=== PATIENT | female | born 1995 | race Asian ===

== ENCOUNTER 2024-09-15 05:41 | Emergency (ER) | payer OTHER, SELFPAY ==
[2024-09-15 05:46] VITALS: BP 123/80
[2024-09-15 06:24] VITALS: BMI 30.7
[2024-09-15 07:07] LABS: COVID-19 Antigen Negative (Negative)
--- NOTE | 2024-09-15 07:17 | ED.GENMED ---
History of Present Illness
General
Chief Complaint: Cold/Flu/URI Symptoms
Source: patient and family (Father)
Exam Limitations: none
Time Seen by Provider: 09/15/24 06:30
Nursing documentation reviewed up to this point in time: agreed with
History of Present Illness
History of Present Illness:
29-year-old female presents emergency room due to congestion, cough, body aches. She is having difficulty breathing and cannot sleep. She tried taking a little bit of irina last night but it did not help.
Past History
Past History
ED Past Medical History: None
ED Past Surgical History: None
Social History
Tobacco: Non-smoker
Alcohol: Occasional
Drug: None
Review of Systems
Review of Systems
Allergies reviewed?: Yes
All Other Systems: Not applicable
Constitutional: Reports fever
EENT: Reports runny nose
Respiratory: Reports cough and trouble breathing
Cardiac: Reports no symptoms
ABD/GI: Reports no symptoms
: Reports no symptoms
Musculoskeletal: Reports muscle pain
Skin: Reports no symptoms
Neurological: Reports no symptoms
Endocrine: Reports no symptoms
Hematologic/Lymphatic: Reports no symptoms
Psychiatric: Reports no symptoms
Phy Exam
Physical Exam
Physical Exam:
Physical Exam
General: Mild respiratory distress, temperature 100.6
Neck: supple. no meningeal signs. normal posterior pharynx
Heart: s1/s2 tachycardia, no murmur. equal radial
pulses.
HEENT: Pupils equal round reactive to light, EOMI
Lungs: Mild respiratory distress. wheezing and decreased breath sounds bilaterally
Abdomen: normal bowel sounds. not tender. no CVAT
Neuro: alert and oriented. no focal neurological deficits cranial nerves II through XII intact
Skin: no rash
Psychiatric: well kept. interactive and cooperative
Extremities: no edema. no calf tenderness. negative homans. good distal pulses
Sepsis
Sepsis Screening
Sepsis Assessment: Sepsis Ruled Out
Sepsis Screen
Sepsis Screen: Sepsis Ruled Out
Date: 09/15/24
Time: 10:44
Course
Orders/Labs/Results
Orders:
Orders
09/15/24 05:49
Chest [CR Chest - 2 Views ] Urgent
Comment:
Reason For Exam: SOB
09/15/24 05:52
Rapid Strep Group A Urgent
ABIMAEL Source: Throat/Pharynx
Specimen Description:
Date Specimen was Collected: 09/15/24
Time Specimen was Collected: 05:49
09/15/24 06:38
COVID-19 Antigen Urgent
Source: Nasal Swab
Influenza A+B Rapid Molecular Urgent
ABIMAEL Source: Nasal Swab
Specimen Description:
09/15/24 07:09
Ipratropium/Albuterol Sulfate [Duoneb] 3 ml INH R NOW STA
09/15/24 07:15
Prednisone [Deltasone] 50 mg PO NOW STA
09/15/24 07:18
Acetaminophen [Tylenol] 650 mg PO NOW STA
09/15/24 07:54
Ipratropium/Albuterol Sulfate [Duoneb] 3 ml INH R NOW STA
Vital Signs
Initial and Last Documented VS:
Initial Vital Signs
Temp Pulse Resp BP Pulse Ox
100.6 F H 106 24 123/80 91
09/15/24 05:46 09/15/24 05:46 09/15/24 05:46 09/15/24 05:46 09/15/24 05:46
Last Documented Vital Signs
Temp Pulse Resp BP Pulse Ox
100.6 F H 106 24 89/67 95
09/15/24 05:46 09/15/24 05:46 09/15/24 05:46 09/15/24 10:00 09/15/24 10:00
MDM/Problems Addressed
Differential Diagnosis Includes:
Pneumonia, CHF, pneumothorax
MDM/Problems Addressed:
29-year-old female with bronchitis. CXR no infiltrates. Improved after duonebs, prednisone. Stable for dc.
*Radiology
Radiology exam reviewed: preliminary read by ED provider (cxr nad)
*Pulse Oximetry
Patient hypoxic: no
*Critical Care Note
Total Time (30-74mins, 75-104mins- exclusive of procedures): Not Applicable
Data Reviewed
Further Testing Considered But Not Given:
labs, ct chest not indicated
ED Attending Note
-
Portions of this chart may have been created with voice recognition software.� Occasional wrong word or��sound alike� substitutions may have occurred due to the inherent limitations of voice recognition software.
Discharge Plan
Departure
Patient Disposition: Home (Routine Discharge)
Date of Disposition: 09/15/24
Time of Disposition: 10:09
Patient with high blood pressure during this ER visit?: Yes
Discharge Problem:
Acute bronchitis
Instructions: Acute Bronchitis, Adult (DC)
Prescriptions:
New
albuterol sulfate 90 mcg/actuation aerosol powdr breath activated
2 inh inhalation Q4H PRN (Reason: shortness of breath) Qty: 1 0RF
prednisone 50 mg tablet
50 mg PO DAILY Qty: 5 0RF
No Action
methylprednisolone [Medrol (Miguel)] 4 MG tablets,dose pack
4 tab PO . DIRECT Qty: 1 0RF
hydroxyzine HCl 10 MG tablet
10 mg PO TID PRN (Reason: Itching) Qty: 15 0RF
meloxicam 7.5 MG tablet
7.5 mg PO BID Qty: 14 0RF
albuterol sulfate 90 mcg/actuation aerosol powdr breath activated
2 inh inhalation Q6H PRN (Reason: shortness of breath or wheezing) Qty: 1 0RF
(DME) [employer] [place] Enhancer Spacer
See Rx Instructions .Route Qty: 1 0RF
Rx Instructions:
As directed
Referrals:
Claudette Driscoll MD [Family Provider] - Call in 1-3 days for appt
Interventions
Interventions:
*Risk Screen - Suicide Last Done: 09/15/24 06:24
*General Assessment Last Done: 09/15/24 06:24
*Neglect/Abuse Screening Last Done: 09/15/24 06:24
ED- Fall Risk Assessment Last Done: 09/15/24 08:42
*ED COVID-19 Vaccine History Last Done: 09/15/24 06:24
*Nursing Disposition Last Done: 09/15/24 10:27
ED- Cardiac Assessment Last Done: 09/15/24 06:24
ED- Pulmonary Assessment Last Done: 09/15/24 06:24
Discharge Date and Time
Print Language: GREEK
[2024-09-15] MEDS: TYLENOL 650 MG PO (07:29)
[2024-09-15] MEDS: DELTASONE 50 MG PO (07:29)
[2024-09-15] MEDS: DUONEB 3 ML INH ×2 (07:29→08:00)
[2024-09-15 07:33] VITALS: BP 105/74
[2024-09-15 08:00] VITALS: BP 112/72
[2024-09-15 09:00] VITALS: BP 98/64
[2024-09-15 10:00] VITALS: BP 89/67
== END 2024-09-15 10:27 | disposition home or self-care (01) ==
LOC: EMR 05:41
PROVIDERS: EMERGENCY PHYSICIAN Emergency Medicine; FAMILY PHYSICIAN Internal Medicine
DX: J20.9 Acute bronchitis, unspecified (principal)
CPT/HCPCS: 99284; 94640; 71046; 87070; 87502; 87811; 87880